=== PATIENT | male | born 1965 | race Caucasian/White ===

== ENCOUNTER 2018-11-18 17:05 | Emergency (ER) | payer OTHER ==
[2018-11-18] MEDS ORDERED: Meclizine HCl 25 MG TAB ONE (17:30)
[2018-11-18] MEDS ORDERED: Ondansetron PF 4 MG/2 ML Vial ONE (17:30)
[2018-11-18 17:37] LABS: #Basophils 0.1 thou/uL (0.0-0.2); #Eosinphils 0.2 thou/uL (0.0-0.7); #Lymphocytes 2.9 thou/uL (1.20-3.40); #Monocytes 0.5 thou/uL (0.11-0.59); #Neutrophils 3.1 thou/uL (1.40-6.50); %Basophils 1.2 % (0.0-1.0); %Eosinophils 2.7 % (0.0-10.0); %Lymphocytes 43.1 % (21.0-51.0); Hemoglobin 16.2 g/dL (14.0-18.0); Mean Corpuscular HGB CONC 35.1 g/dL (32.0-36.0); Mean Corpuscular Hemoglobin 31.7 pg (27.0-31.0); Mean Corpuscular Volume 90.2 fL (78.0-98.0); Mean Platelet Volume 7.1 fL (7.4-10.4); Platelet Count 252 thou/uL (130-400); RBC Distribution Width 11.9 % (11.5-14.5); White Blood Cell (WBC) Count 6.7 thou/uL (4.8-10.8)
[2018-11-18 17:48] LABS: ALT (SGPT) 26 U/L (8-55); AST (SGOT) 21 U/L (5-34); Albumin 4.2 g/dL (3.5-5.0); Alkaline Phosphatase 73 U/L (40-150); Anion Gap 12 mmol/L (10-20); BUN (Urea Nitrogen) 20 mg/dL (8.4-25.7); Bilirubin, Total 0.5 mg/dL (0.2-1.2); Calc. Creatinine Clearance 0 mL/min (70-130); Calcium 9.4 mg/dL (7.8-10.44); Carbon Dioxide 25 mmol/L (22-29); Chloride 108 mmol/L (98-107); Estimated GFR-MDRD 72; Globulin 2.5 g/dL (2.4-3.5); Glucose 124 mg/dL (70-105); Potassium 3.9 mmol/L (3.5-5.1); Protein, Total 6.7 g/dL (6.0-8.3); Sodium 141 mmol/L (136-145)
--- NOTE | 2018-11-18 17:53 | RAD ---
PORTABLE AP CHEST X-RAY 11/18/18 HISTORY: Dizziness and syncope. FINDINGS: The cardiac silhouette and bronchovascular markings are magnified by shallow depth of inspiration and portable technique. Lungs are otherwise clear. There is mild elevation of the right hemidiaphragm. O sseous structures are intact. IMPRESSION: No acute cardiopulmonary process. POS: C
--- NOTE | 2018-11-18 18:05 | CT ---
NONCONTRAST CT HEAD: 11/18/18 HISTORY: Sudden onset of dizziness this morning. Two episodes of vomiting. COMPARISON: None available. FINDINGS: There is no evidence of a hemorrhage, acute infarction, mass effect, or midline shift. Ventricular sy stem is normal in size, shape and position. The visualized paranasal sinuses and mastoid air cells ar e clear. The calvarial structures are intact. IMPRESSION: No acute intracranial abnormalities demonstrated. POS: C
[2018-11-18] MEDS ORDERED: Ketorolac Tromethamine 30 MG/ML VIAL ONE (19:44)
== END 2018-11-18 20:07 | disposition home or self-care (01) ==
LOC: ERS 17:05
DX: R42 Dizziness and giddiness (principal); Z79.82 Long term (current) use of aspirin
CPT/HCPCS: 70450; 71045; 80053; 84484; 85025; 93005; 96361; 96374; 96375; J1885; J2405

== ENCOUNTER 2019-08-18 10:29 | Outpatient (CLI) | payer OTHER ==
[2019-08-18 11:36] LABS: #Eosinphils 0.3 thou/uL (0.0-0.7); #Lymphocytes 2.2 thou/uL (1.20-3.40); #Monocytes 0.6 thou/uL (0.11-0.59); #Neutrophils 3.7 thou/uL (1.40-6.50); %Basophils 0.7 % (0.0-1.0); %Eosinophils 4.2 % (0.0-10.0); %Lymphocytes 32.2 % (21.0-51.0); %Monocytes 8.2 % (0.0-10.0); %Neutrophils 54.8 % (42.0-75.0); Hemoglobin 15.3 g/dL (14.0-18.0); Mean Corpuscular HGB CONC 33.3 g/dL (32.0-36.0); Mean Corpuscular Hemoglobin 30.8 pg (27.0-31.0); Mean Corpuscular Volume 92.5 fL (78.0-98.0); Mean Platelet Volume 6.9 fL (7.4-10.4); Platelet Count 236 thou/uL (130-400); RBC Distribution Width 11.9 % (11.5-14.5); Red Blood Cell (RBC) Count 4.95 mill/uL (4.70-6.10); White Blood Cell (WBC) Count 6.7 thou/uL (4.8-10.8)
[2019-08-18 11:47] LABS: ALT (SGPT) 20 U/L (8-55); AST (SGOT) 16 U/L (5-34); Albumin 4.1 g/dL (3.5-5.0); Alkaline Phosphatase 71 U/L (40-110); Anion Gap 10 mmol/L (10-20); BUN (Urea Nitrogen) 19 mg/dL (8.4-25.7); Bilirubin, Total 0.4 mg/dL (0.2-1.2); Calc. Creatinine Clearance 0 mL/min (70-130); Calcium 9.1 mg/dL (7.8-10.44); Carbon Dioxide 30 mmol/L (22-29); Chloride 107 mmol/L (98-107); Estimated GFR-MDRD 66; Globulin 2.4 g/dL (2.4-3.5); Glucose 93 mg/dL (70-105); Potassium 4.3 mmol/L (3.5-5.1); Protein, Total 6.5 g/dL (6.0-8.3); Sodium 143 mmol/L (136-145)
--- NOTE | 2019-08-19 19:56 | EKG ---
Test Reason : Blood Pressure : / mmHG Vent. Rate : 074 BPM Atrial Rate : 074 BPM P-R Int : 166 ms QRS Dur : 098 ms QT Int : 400 ms P-R-T Axes : 044 010 027 degrees QTc Int : 444 ms Sinus rhythm with occasional Premature ventricular complexes and Fusion complexes Minimal voltage criteria for LVH, may be normal variant Borderline ECG When compared with ECG of 18-NOV-2018 17:05, Fusion complexes are now Present Premature ventricular complexes are now Present Confirmed by TEMITOPE ALMANZAR, SDominick ([id number]) on 08/19/2019 7:55:49 PM Referred By: MIKE Confirmed By:DR. Ilda LINN MD
== END 2019-08-18 10:30 | disposition home or self-care (01) ==
LOC: LABBT 10:29
PROVIDERS: ATTEND Surgery
DX: Z01.818 Encounter for other preprocedural examination (principal); K43.9 Ventral hernia without obstruction or gangrene
CPT/HCPCS: 80053; 85025; 93005; 93010

== ENCOUNTER 2019-08-19 09:33 | Day surgery (SDC) | payer OTHER ==
[2019-08-18 10:37] VITALS: BMI 34.2
[2019-08-19] MEDS ORDERED: Bupivacaine HCl 0.5%/Epinephrine 1:200,000/PF 30 ml Vial ONE (11:27)
[2019-08-19] MEDS ORDERED: Fentanyl 100 MCG/2 ML VIAL ONE (11:33)
[2019-08-19] MEDS ORDERED: Dexamethasone 20 MG/5 ML VIAL ONE (11:42)
[2019-08-19] MEDS ORDERED: Ondansetron PF 4 MG/2 ML Vial ONE (11:42)
[2019-08-19] MEDS ORDERED: Rocuronium Bromide 10 MG/ML (10ML VIAL) ONE (11:42)
[2019-08-19] MEDS ORDERED: PROPOFOL 200 MG/20 ML VIAL ONE (11:42)
[2019-08-19] MEDS ORDERED: Glycopyrrolate 0.2 MG/ML 5 ML SYRINGE ONE (11:42)
[2019-08-19] MEDS ORDERED: Lidocaine 1% PF 5 ML VIAL ONE (11:42)
[2019-08-19] MEDS ORDERED: Ketorolac Tromethamine 30 MG/ML VIAL ONE (11:42)
--- NOTE | 2019-08-19 13:45 | OP ---
DATE OF PROCEDURE: 08/19/2019 PREOPERATIVE DIAGNOSIS: Epigastric abdominal hernia. PROCEDURE PERFORMED: Epigastric ventral hernia repair with mesh. INDICATIONS: This is a 54-year-old male, who developed a painful bulge in his epigastrium. He was found to have an epigastric hernia. FINDINGS: A 1.5 cm defect with 6 x 6 cm prolapsing omentum, 6.4 cm mesh used. DESCRIPTION OF PROCEDURE: After informed consent was obtained, the patient was taken to the operating room, given general mask anesthesia, placed in the supine position. Abdomen was prepped and draped in usual fashion. Local anesthesia was infiltrated subcutaneously and deep. An upper midline incision was performed. Subcu divided sharply. The hernia sac was dissected out circumferentially down to the fascia. The defect was about 1.5 cm, but it was 6 x 6 cm of tissue that prolapsed through this. The hernia sac was removed. The tissue was divided between clamps and tied with a 2-0 silk suture. Then, a 6.4 cm PROCEED mesh twenty-nine palms was hydrated, inserted intra-abdominally. The leads were sutured to the abdominal wall with interrupted 0 Ethibond suture. Then, hemostasis was assured. The subcu was reapproximated with interrupted 3-0 Vicryl. Skin was closed with a running subcuticular 4-0 Rapide. Steri-Strips applied. Sterile bandage applied. The patient tolerated the procedure well, transferred to Recovery in good condition. Sponge and needle count verified correct x2. Job ID: [id number]
== END 2019-08-19 15:05 | disposition home or self-care (01) ==
LOC: SDC 09:33
PROVIDERS: ATTEND Surgery
PROC: 0WUF0JZ Supplement Abdominal Wall with Synthetic Substitute, Open Approach (ICD-10-PCS; principal; 2019-08-19)
DX: K43.9 Ventral hernia without obstruction or gangrene (principal); Z79.82 Long term (current) use of aspirin; Z79.899 Other long term (current) drug therapy
CPT/HCPCS: J0670; J0690; J1100; J1885; J2001; J2405; J2704; J3010